=== PATIENT | male | born 1935 | race Two or more races ===

== ENCOUNTER 2020-02-04 21:41 | Inpatient (IN) | payer OTHER ==
[~2020-02-04] VITALS: Ht 182.9 cm; Wt 92.4 kg
[2020-02-04] MEDS ORDERED: LIDOCAINE 2%HCL (LOCAL ANESTH.) INJ 20ML MDV ONE (22:08)
[2020-02-04] MEDS ORDERED: IODIXANOL 320MG/ML 100ML BTL IV ONE ×2 (22:08→23:04)
[2020-02-04] MEDS ORDERED: NOREPINEPHRINE 8 MG/250ML KIT 250 ML IV ONE (22:08)
[2020-02-04] MEDS ORDERED: SODIUM CHL 0.9% 50 ML ONE (22:10)
[2020-02-04] MEDS ORDERED: diphenhdrAMINE HCL 50 MG/1 ML VL ONE (22:10)
[2020-02-04] MEDS ORDERED: ANGIOMAX 250 MG VIAL IV ONE (22:10)
[2020-02-04] MEDS ORDERED: MIDAZOLAM HCL 1MG/1ML-2 ML VIAL ONE (22:10)
[2020-02-04] MEDS ORDERED: fentaNYL CITRATE 100 MCG/2 ML VL ONE (22:10)
[2020-02-04] MEDS: NOREPINEPHRINE 8 MG/250ML KIT 250 ML IV SCH (22:15)
[2020-02-04 22:16] LABS: Hemoglobin 13.3 g/dL (13.5-17.5); Mean Corpuscular Hemoglobin 27.8 pg (28.0-32.0); Mean Corpuscular Volume 89.6 fL (80.0-100.0); Platelet Count (auto) 139 10^3/uL (140-450); Red Cell Distribution Width 17.1 % (11.8-14.3); White Blood Cell 13.1 10^3/uL (4.4-10.8)
[2020-02-04] MEDS ORDERED: DOPamine 1600MCG/ML D5W 0 ML IV ONE (22:17)
[2020-02-04] MEDS ORDERED: ATROPINE SULF 1 MG/10ml SYR ONE (22:17)
[2020-02-04] MEDS ORDERED: EPINEPHrine HCL 1 MG/10 ML SYRG ONE (22:17)
[2020-02-04 22:31] LABS: Urine Bacteria FEW /hpf (None Seen); Urine Blood 3+ /uL (Negative); Urine Specific Gravity 1.015 (1.001-1.035); Urine WBC 59 /hpf (0 - 3)
[2020-02-04 22:38] LABS: Calcium 8.5 mg/dL (8.5-10.1); Potassium 5.3 mmol/L (3.5-5.1)
[2020-02-04 22:39] LABS: Basophils % (manual) 0 (0.0-2.0); Blast Cells 0; Myelocytes % 0; Promyelocytes % 0
[2020-02-04 22:45] LABS: Albumin 3.2 g/dL (3.4-5.0); BUN/Creatinine Ratio 23.7; Bilirubin, Total 0.5 mg/dL (0.2-1.0); Total Protein 7.5 g/dL (6.4-8.2)
[2020-02-04 23:03] LABS: Band Neutrophils % (manual) 2; Eosinophils % (manual) 1 (0-7); Lymphocytes % (manual) 57 (10.0-50.0); Metamyelocytes % 1; Monocytes % (manual) 7 (0-12); Reactive Lymphocytes 2
[2020-02-04] MEDS ORDERED: CLOPIDOGREL 300 MG TAB ONE (23:57)
[2020-02-04] MEDS ORDERED: ASPirin 325 MG TAB ONE (23:57)
[2020-02-05] VITALS (103 sets, daily range): BP systolic 68–129; BP diastolic 31–73
[2020-02-05] MEDS ORDERED: CLOPIDOGREL 300 MG TAB ONE
--- NOTE | 2020-02-05 00:45 | NUR ---
HYPOTHERMIA STARTED, V/S STABLE. COOLING BLANKET UNDER AND ON TOP OF PT.
--- NOTE | 2020-02-05 00:52 | NUR ---
0012-REPORT GIVEN TO AMAURI GUERRERO IN FULL DETAIL. 0015-PT TRANSPORTED TO ICU RM 101 BY RT AND 2 RN'S IN STABLE CONDITION ON BUILDING WRECKER AND IS INTUBATED. CESAR BAUGH AT BEDSIDE. ARTERIAL SHEATH IN PLACE AND INTACT. NO BLEEDING FROM SITE, NO HEMATOMA. ANGIOMAX COMPLETED. NO INCIDENTS TO REPORT.
[2020-02-05] MEDS ORDERED: LIDOCAINE 1% (LOCAL ANESTH.) PF 5ml SDV ONE (08:02)
--- NOTE | 2020-02-05 08:30 | NUR ---
PATIENT TRANSITIONED TO ZOLL THERAPEUTIC HYPOTHERMIA SYSTEM FROM HYPOTHERMIA BLANKET METHOD.
--- NOTE | 2020-02-05 08:40 | NUR ---
2D CARDIAC ECHO IN PROGRESS AT BEDSIDE.
--- NOTE | 2020-02-05 08:55 | NUR ---
ABG RESULTS CALLED TO DR JUSTICE - ORDERS RECEIVED.
[2020-02-05] MEDS ORDERED: SODIUM CHLORIDE 0.9% 1,000 ML IV ONE (09:00)
[2020-02-05] MEDS ORDERED: VANCOMYCIN PER PHARMACY 0 MG IV SCH (09:00)
[2020-02-05] MEDS ORDERED: SODIUM BICARBONATE 8.4 % INJ 50ML VIAL IV ONE ×4 (09:00→16:15)
[2020-02-05] MEDS ORDERED: SODIUM CHLORIDE 0.9% 1,000 ML IV SCH ×2 (09:00→10:00)
--- NOTE | 2020-02-05 09:00 | NUR ---
NO SEDATION IN PLACE CURRENTLY Addendum: 02/05/20 at 2027 by Arabella Kinney RN Amended: Links added.
--- NOTE | 2020-02-05 09:25 | NUR ---
DR MANNING VISITS AND EXAMINES PATIENT - ORDERS RECEIVED.
[2020-02-05] MEDS ORDERED: VANCOMYCIN 1GM/250ML 250 ML IV ONE (09:30)
--- NOTE | 2020-02-05 09:30 | NUR ---
SPOKE TO DR MANNING RE: ABD DISTENTION AND FIRMNESS - NO ORDERS RECEIVED.
[2020-02-05 09:32] LABS: Basophils # (auto) 0 10 ^3/uL (0-0.2); Basophils % (auto) 0.2 % (0.0-2.0); Eosinophils # (auto) 0 10 ^3/uL (0-0.8); Eosinophils % (auto) 0.1 % (0.0-7.0); Hematocrit 43.9 % (41.0-53.0); Hemoglobin 13.9 g/dL (13.5-17.5); Lymphocytes # (auto) 0.8 10 ^3/uL (0.4-5.4); Lymphocytes % (auto) 18.6 % (10.0-50.0); Mean Corpuscular Hemoglobin 27.8 pg (28.0-32.0); Mean Corpuscular Hgb Conc. 31.7 g/dL (32.0-36.0); Mean Corpuscular Volume 87.9 fL (80.0-100.0); Monocytes # (auto) 0.3 10 ^3/uL (0-1.3); Monocytes % (auto) 8.1 % (0.0-12.0); Nucleated Red Blood Cells % 0.1 %; Platelet Count (auto) 226 10^3/uL (140-450); Red Cell Distribution Width 17.2 % (11.8-14.3); White Blood Cell 4.1 10^3/uL (4.4-10.8)
[2020-02-05] MEDS: NOREPINEPHRINE 8 MG/250ML KIT 250 ML IV SCH ×2 (09:45→18:45)
[2020-02-05 09:51] LABS: Albumin 2.7 g/dL (3.4-5.0); Calcium 7.9 mg/dL (8.5-10.1); Potassium 4.4 mmol/L (3.5-5.1)
[2020-02-05] MEDS: CARVEDILOL 3.125 MG TAB PO SCH ×2 (09:53→18:00)
[2020-02-05] MEDS: LISINOPRIL 5 MG TAB PO SCH (09:53)
[2020-02-05 09:54] LABS: BUN/Creatinine Ratio 19.7; Bilirubin, Total 0.6 mg/dL (0.2-1.0); Lactic Acid w/Reflex 8.2 mmol/L (0.4-2.0); Total Protein 6.5 g/dL (6.4-8.2)
[2020-02-05] MEDS ORDERED: ENOXAPARIN SOD 40 MG/0.4 ML SYRINGE SC SCH (10:00)
[2020-02-05] MEDS ORDERED: DEXTROSE (50%) 50ML SYRG IV PRN (10:00)
[2020-02-05] MEDS ORDERED: PANTOPRAZOLE 40 MG/10 ML VIAL INJ IV SCH (10:00)
[2020-02-05] MEDS: fentaNYL Drip 2500mCg/250mlNS 250 ML IV SCH (10:13)
[2020-02-05] MEDS: PROPOFOL 100 ML IV SCH (10:13)
--- NOTE | 2020-02-05 10:18 | NUR ---
MESSAGE LEFT ON DR JUSTICE'S VM RE: TROP LEVEL 3.17
[2020-02-05] MEDS ORDERED: MIDAZOLAM DRIP 50 mg/50mL 50 ML IV ONE (10:22)
[2020-02-05] MEDS ORDERED: fentaNYL Drip 2500mCg/250mlNS 250 ML IV ONE (10:22)
[2020-02-05] MEDS ORDERED: SODIUM CHLORIDE 0.9% 2,000 ML IV ONE (10:45)
[2020-02-05] MEDS: MIDAZOLAM DRIP 50 mg/50mL 50 ML IV SCH ×2 (10:45→21:48)
--- NOTE | 2020-02-05 10:56 | NUR ---
WOUND CARE NOTE: Wound care in to see patient per wound care request regarding low Lyndon score and intubation status putting patient to high risk for skin breakdown. Patient is 84 years old male with admitting diagnosis of STEMI. Patient with history of CAD S/P 3V CABG and DM. Patient is resting in ICU bed in Rm. 101. Patient is intubated, and mechanically ventilated. Unable to do full skin assessment per primary nurse, AMAURI Bell's request due to "BP is too low" "unstable to turn"; wound care will try to come back at later time for skin assessment. Addendum: 02/05/20 at 1403 by Kita Singer RN At 1243 Wound care attempted to see patient again for skin assessment. Patient's nurse at bedside, reported that patient is still unstable to turn. Wound care will try to see patient again at later time. RECOMMENDATION: Nursing to continue with BID/PRN cleaning and application of Barrier cream to sacral buttocks as preventative per MD order, frequent turning and repositioning schedule as condition permits, redistribute pressure points with pillows,elevate heels on pillow, continue monitoring by wound care while patient is mechanically ventilated.
--- NOTE | 2020-02-05 11:35 | NUR ---
DR SALAS VISITS AND EXAMINES PATIENT - ORDERS RECEIVED
[2020-02-05] MEDS: CLOPIDOGREL BISULFATE 75 MG TAB PO SCH (11:45)
[2020-02-05] MEDS: ASPirin 81 mg TAB PO SCH (11:45)
--- NOTE | 2020-02-05 11:49 | NUR ---
VIKAS IN PROGRESS AT BEDSIDE. FREIGHT COORDINATOR NOTED LARGE AMOUNT RECTAL BLEEDING - DR SALAS AT BEDSIDE - NOTIFIED. Signed: 02/05/20 at 1151 by Aarbella Kinney RN
[2020-02-05] MEDS: cefTRIAXone 1GM/50ML D5W 50 ML IV SCH (11:55)
[2020-02-05] MEDS: ACCU-CHEK COMFORT CURVE STRIP VI SCH ×2 (12:00→18:21)
[2020-02-05] MEDS: PHENYLEPHRINE IV 250 ML IV SCH ×5 (12:00→21:45)
--- NOTE | 2020-02-05 12:17 | NUR ---
DR ROSARIO NOTIFIED OF CONSULT AND PATIENT CONDITION - ORDERS RECEIVED.
--- NOTE | 2020-02-05 12:23 | NUR ---
DR ROSARIO AT BEDSIDE - -EXAMINES PATIENT - ORDERS RECEIVED. CALL PLACED TO DR JUSTICE RE: USE OF FFP DUE TO BLEEDING. DR SALAS AT BEDSIDE - AWARE OF SITUATION. Signed: 02/05/20 at 1227 by Arabella Kinney RN
--- NOTE | 2020-02-05 12:29 | NUR ---
NORA ASHTON NOTIFIED OF DR ROSARIO'S REQUEST TO GIVE FFP - ORDER RECEIVED TO TRANSFUSE.
[2020-02-05] MEDS: SODIUM CHLORIDE 0.9% 1,000 ML IV SCH ×3 (12:30→20:58)
[2020-02-05] MEDS ORDERED: EPINEPHrine HCL 1 MG/10 ML SYRG IV ONE (12:35)
[2020-02-05] MEDS ORDERED: SODIUM BICARBONATE 8.4% INJ 50ML SYRINGE IV ONE (12:35)
--- NOTE | 2020-02-05 12:44 | NUR ---
DR JUSTCIE RETURNS CALL - INFORMED OF GI BLEED AND NEED FOR FF TRANSFUSION - AGREEABLE Signed: 02/05/20 at 1244 by Arabella Kinney RN
--- NOTE | 2020-02-05 12:55 | NUR ---
NG tube irrigated with 30 ml water - no liq returned - cont'd on LCWS.
--- NOTE | 2020-02-05 13:00 | NUR ---
at bedside - condition noted, no new orders received.
[2020-02-05 13:10] LABS: Hematocrit 38.3 % (41.0-53.0); Hemoglobin 12.5 g/dL (13.5-17.5)
[2020-02-05] MEDS: PANTOPRAZOLE 40mg/50ML NS AE 50 ML IV SCH ×3 (13:23→23:00)
[2020-02-05] MEDS: InsuLIN REG 1unit/0.01ml Soln (100units/ml) SC SCH ×2 (13:23→18:18)
--- NOTE | 2020-02-05 13:50 | NUR ---
Wallace catheter with gross hematuria - repositioned and flushed with sterile NS - increased urine flow noted - will continue to monitor.
--- NOTE | 2020-02-05 14:10 | NUR ---
notified of B results - order received.
--- NOTE | 2020-02-05 14:36 | NUR ---
HOLD P.T. TODAY PER RN. PT IS NOT STABLE.
--- NOTE | 2020-02-05 14:37 | NUR ---
RT made insurance writer aware of abg results - called to per RT - awaiting return call for orders.
--- NOTE | 2020-02-05 14:38 | NUR ---
Patient's daughter phones - updated on patient condition - states has advance directive - will bring into hospital today.
--- NOTE | 2020-02-05 14:55 | NUR ---
Dr Raphael notified of [facility] results - order received, no vent changes, meds ordered. Addendum: 02/05/20 at 1614 by Arabella Kinney RN Dr Brown states to notify Dr. Ron - call placed to .
--- NOTE | 2020-02-05 15:30 | NUR ---
PATIENT'S DAUGHTER DELIVERS ADVANCE DIRECTIVE TO HOSPITAL.
--- NOTE | 2020-02-05 16:14 | NUR ---
Another call placed to Dr. Ron re: VIKAS results.
--- NOTE | 2020-02-05 16:30 | NUR ---
DR ROSARIO RETURNS CALL - INFORMED OF KUB RESULT - STATES TO PLACE RECTAL TUBE IF PATIENT NOT RECTALLY BLEEDING. PATIENT'S BP VERY LABILE, BRUCE GTT MAXXED - UNABLE TO PLACE RECTAL TUBE AT PRESENT.
--- NOTE | 2020-02-05 16:52 | NUR ---
FFP FIRST UNIT STARTED
--- NOTE | 2020-02-05 17:09 | NUR ---
DR MANNING NOTIFIED OF BRUCE GTT MAXXED, PATIENT'S DECLINING CONDITION RE: BP AND PATIENT'S ADVANCE DIRECTIVE -STATES TO CONTACT DR JUSTICE TO TALK WITH PATIENT'S FAMILY - CALL PLACED TO DR JUSTICE
--- NOTE | 2020-02-05 17:18 | NUR ---
DR JUSTICE RETURNS CALL - INFORMED OF DR MANNING'S REQUEST TO CALL PATIENT'S DAUGHTER TO DISCUSS POC AND CODE STATUS. Signed: 02/05/20 at 1720 by Arabella Kinney RN
--- NOTE | 2020-02-05 17:24 | NUR ---
SPOKE TO DR JUSTICE - STATES SPOKE TO PATIENT'S DAUGHTER LUIS - MODIFIED CODE STATUS RECEIVED - NO COMPRESSIONS.
--- NOTE | 2020-02-05 17:33 | NUR ---
DR JUSTICE PHONES - STATES SPOKE WITH PATIENT'S DAUGHTER - MODIFIED CODE STATUS OBTAINED - NO CPR
[2020-02-05] MEDS: EPINEPHrine HCL 250 ML IV SCH (17:41)
--- NOTE | 2020-02-05 19:30 | NUR ---
CARE ASSUMED. PT. SEDATED ON VERSED AND FENTANYL, NO RESPONSE TO NOXIOUS STIMULI. PUILS RIGHT - CLOUD OVER AND LEFT 2 SLUGGISH. NO GAG, NO COUGH. ETT 7.5, 24FR. VENTED AT TV 500, PEEP +10, RR 22 AC, 50% FIO2. SATS 95. LEFT UPPER LOBE ABSENT BREATH SOUNDS, COARSE AND DIMINISHED AT BASES. HR 90'S, IRREGULAR, PVC'S FREQUENTLY AND ST SEGMENT DEPRESSIONS. BLOOD PRESSURES VERY LABILE 70'S TO 100'S. PRESENTLY ON LEVO AT 30 MCG/MIN., BRUCE 180 MCG/MIN. EPI AT 2 MCG/MIN. ABDOMEN - LARGE, ROUND, DISTENDED AND FIRM. ABSENT BOWEL SOUNDS. RIGHT NARE NGT TO LIS, SMALL AMT. OF BROWN DRAINAGE PRESENT. NO BM AT THIS TIME. BERGERON WITH TONY NOTED, FLUSHED WITH 40CC NS, WILL CONTINUE TO MONITOR. COOLGUARD MACHINE IN PLACE, TEMP 34 C. WILL RESTART WARMING AT 0100 02/05. RIGHT LEFT GROIN INTACT. CENTRAL LINE TO RIGHT INTACT AND LEFT ART LINE NO ISSUES. ART LINE WAVE FORM ADEQUATE, GOOD BLOOD RETURN. IV SITE TO RT. AND LT. WRIST INTACT. RIGHT SC LINE INTACT. ALL DRIPS AND IVF INFUSING THRU IT.
--- NOTE | 2020-02-05 21:00 | NUR ---
CALL RECEIVED FROM FAMILY MEMBER WHO STATES IS OLDER DAUGHTER BUT HAS NO PASSWORD DUE TO FAMILY ISSUES. INFORMED THAT WE ARE UNABLE TO PROVIDE ANY INFORMATION TO ANYONE WITHOUT A PASSWORD. STATED SHE WILL LOOK FOR LEGAL HELP.
[2020-02-05] MEDS: ATORVASTATIN 20 MG TAB PO SCH (21:35)
--- NOTE | 2020-02-05 21:36 | NUR ---
CALL RECEIVED FROM LAB - TROPONIN 3.6, NOT REPORTED AT THIS TIME LEVELS EXPECTED TO BE ELEVATED D/T S/P M.I AND CPR
[2020-02-05] MEDS: VASOPRESSIN 50 UNITS in D5W 5% 247.5 ML IV SCH (21:46)
[2020-02-05] MEDS ORDERED: PHENYLEPHRINE HCL 10 MG/ML VL ONE (23:23)
[2020-02-05] MEDS ORDERED: PHENYLEPHRINE IV 500 ML IV ONE (23:23)
[2020-02-05] MEDS: PHENYLEPHRINE INJ 40 MG in SODIUM CHL 0.9% 250 ML IV SCH (23:30)
[2020-02-05] MEDS: NOREPINEPHRINE BITARTRATE 16 MG in D5W 5% 250 ML IV SCH (23:30)
--- NOTE | 2020-02-05 23:30 | NUR ---
DRIP CONCENTRATIONS: SPOKE TO [facility]LL ADJUNCT BUSINESS INSTRUCTOR REGARDING PATIENT AND THE NEED TO CONCENTRATE DRIPS. ORDER RECEIVED.
--- NOTE | 2020-02-05 23:30 | NUR ---
HAVE STARTED VASOPRESSIN AND PRESSURES IMPROVED, WILL CONTINUE TO MONITOR. URINE OUTPUT LOW AND BLOODY, NO CLOTS NOTED AT THIS TIME.
[2020-02-06] VITALS (105 sets, daily range): BP systolic 84–125; BP diastolic 21–65
[2020-02-06] MEDS: InsuLIN REG 1unit/0.01ml Soln (100units/ml) SC SCH ×5 (00:05→23:48)
--- NOTE | 2020-02-06 01:00 | NUR ---
REWARMING PHASE STARTED AT 0.5 CELSIUS/HR. WILL CONTINUE TO MONITOR.
[2020-02-06 01:40] LABS: Hematocrit 38.7 % (41.0-53.0); Hemoglobin 11.8 g/dL (13.5-17.5)
[2020-02-06] MEDS: EPINEPHrine HCL 250 ML IV SCH ×3 (02:09→15:25)
[2020-02-06] MEDS: PANTOPRAZOLE 40mg/50ML NS AE 50 ML IV SCH ×5 (03:15→22:23)
[2020-02-06 03:44] LABS: Basophils # (auto) 0 10 ^3/uL (0-0.2); Eosinophils # (auto) 0 10 ^3/uL (0-0.8); Hemoglobin 11.9 g/dL (13.5-17.5); Monocytes # (auto) 0.2 10 ^3/uL (0-1.3); Nucleated Red Blood Cells % 0.3 %
[2020-02-06 03:48] LABS: Basophils % (auto) 0.1 % (0.0-2.0); Eosinophils % (auto) 0.6 % (0.0-7.0); Hematocrit 38.2 % (41.0-53.0); Lymphocytes # (auto) 0.6 10 ^3/uL (0.4-5.4); Lymphocytes % (auto) 14.5 % (10.0-50.0); Mean Corpuscular Hgb Conc. 31.1 g/dL (32.0-36.0); Mean Corpuscular Volume 86.9 fL (80.0-100.0); Monocytes % (auto) 5.3 % (0.0-12.0); Neutrophils # (auto) 3.1 10 ^3/uL (1.6-8.6); Neutrophils % (auto) 79.5 % (37.0-80.0); Platelet Count (auto) 185 10^3/uL (140-450); White Blood Cell 3.9 10^3/uL (4.4-10.8)
[2020-02-06] MEDS ORDERED: PHENYLEPHRINE HCL 10 MG/ML VL ONE ×2 (03:52→04:29)
[2020-02-06 04:07] LABS: Albumin 2.2 g/dL (3.4-5.0); Calcium 6.7 mg/dL (8.5-10.1); Magnesium 2.5 mg/dL (1.6-2.6)
[2020-02-06 04:11] LABS: BUN/Creatinine Ratio 17.7; Bilirubin, Total 0.5 mg/dL (0.2-1.0); Total Protein 5.2 g/dL (6.4-8.2)
[2020-02-06] MEDS ORDERED: PANTOPRAZOLE 40mg/50ML NS AE 50 ML IV ONE (04:16)
[2020-02-06] MEDS ORDERED: PANTOPRAZOLE 40 MG/10 ML VIAL INJ IV ONE (04:17)
--- NOTE | 2020-02-06 05:45 | NUR ---
CALLED AND LEFT A MESSAGE TO FOR DR. SALAS REGARDING BLOOD GASES RESULTS.
[2020-02-06] MEDS: ACCU-CHEK COMFORT CURVE STRIP VI SCH ×5 (06:22→23:44)
[2020-02-06 06:51] LABS: Hematocrit 37.5 % (41.0-53.0); Hemoglobin 11.9 g/dL (13.5-17.5)
[2020-02-06] MEDS: SODIUM CHLORIDE 0.9% 1,000 ML IV SCH (06:58)
--- NOTE | 2020-02-06 07:18 | NUR ---
REPORT TO TANVIR BAUGH
[2020-02-06] MEDS ORDERED: NOREPINEPHRINE 8 MG/250ML KIT 250 ML IV ONE (07:30)
[2020-02-06] MEDS ORDERED: NOREPINEPHRINE BITARTRATE 2 ML IV ONE (07:30)
[2020-02-06] MEDS ORDERED: SODIUM BICARBONATE 8.4 % INJ 50ML VIAL IV ONE ×4 (08:00→22:45)
[2020-02-06] MEDS: CARVEDILOL 3.125 MG TAB PO SCH ×2 (08:00→17:51)
[2020-02-06] MEDS: NOREPINEPHRINE BITARTRATE 16 MG in D5W 5% 250 ML IV SCH ×3 (08:45→17:45)
--- NOTE | 2020-02-06 09:00 | NUR ---
SEDATION VACATION; Patient currently in re-warming phase of therapeutic hypothermia protocol, is also tachypneic with RR 30's. No plan for sedation vacation at this time, will begin decreasing sedation once patient achieves goal temperature. Addendum: 02/06/20 at 0959 by Gil Cervantes RN Amended: Links added.
--- NOTE | 2020-02-06 09:10 | NUR ---
PROVIDER AT BEDSIDE; Amber Rincon BALANCE SCREWHEAD POLISHER at bedside for cardiology rounds.
[2020-02-06] MEDS ORDERED: POTASSIUM CHL 20MEQ/100ML 100 ML IV SCH (09:15)
[2020-02-06] MEDS: ASPirin 81 mg TAB PO SCH (09:36)
[2020-02-06] MEDS: CLOPIDOGREL BISULFATE 75 MG TAB PO SCH (09:37)
[2020-02-06] MEDS: LISINOPRIL 5 MG TAB PO SCH (09:37)
--- NOTE | 2020-02-06 09:49 | NUR ---
PT UNSTABLE FOR TRANSPORT TO CT AT THIS TIME PER TANVIR BAUGH
[2020-02-06] MEDS ORDERED: VANCOMYCIN 1GM/250ML 250 ML IV ONE (10:00)
[2020-02-06] MEDS ORDERED: ENOXAPARIN SOD 30 MG/0.3 ML SYRINGE SC SCH (10:00)
[2020-02-06] MEDS: PHENYLEPHRINE INJ 40 MG in SODIUM CHL 0.9% 250 ML IV SCH ×4 (10:02→20:00)
[2020-02-06] MEDS: cefTRIAXone 1GM/50ML D5W 50 ML IV SCH (10:05)
[2020-02-06] MEDS: PROPOFOL 100 ML IV SCH (10:13)
[2020-02-06] MEDS: fentaNYL Drip 2500mCg/250mlNS 250 ML IV SCH (10:15)
--- NOTE | 2020-02-06 10:15 | NUR ---
FAMILY PHONE CALL: Call received from patient's daughter Ira, password provided. Update given to Ira including plan to begin to titrate off sedation to assess neurological function. Informed her that patient continues to require high dosages of multiple vasopressors for support at this time. Daughter with no further questions or concerns at this time, states she will call later in the day for an update.
--- NOTE | 2020-02-06 10:35 | NUR ---
PHYSICAL THERAPY; PT at bedside, informed them that patient not a candidate for PT at this time due to hemodynamic instability.
--- NOTE | 2020-02-06 10:47 | NUR ---
Hold PT today per RN, pt is not stable. Will attempt again tomorrow.
--- NOTE | 2020-02-06 11:20 | NUR ---
AT BEDSIDE: Dr. Sanz at bedside, orders received.
[2020-02-06 11:54] LABS: Hematocrit 36.3 % (41.0-53.0); Hemoglobin 12.1 g/dL (13.5-17.5)
[2020-02-06] MEDS: LINEZOLID 600MG/300ML 300 ML IV SCH ×2 (12:02→23:44)
[2020-02-06 12:20] LABS: BUN/Creatinine Ratio 16.4; Calcium 6.7 mg/dL (8.5-10.1); Magnesium 2.2 mg/dL (1.6-2.6); Potassium 3.2 mmol/L (3.5-5.1)
[2020-02-06] MEDS: VASOPRESSIN 50 UNITS in D5W 5% 247.5 ML IV SCH ×2 (12:45→20:00)
[2020-02-06] MEDS: POTASSIUM CHL 20MEQ/100ML 100 ML IV SCH ×2 (14:21→16:25)
[2020-02-06] MEDS: MEROPENEM 500MG IVPB 50 ML IV SCH (14:22)
--- NOTE | 2020-02-06 15:24 | NUR ---
assessment Patient is a 84 year old male who is on a vent in ICU. Per patients daughter Ira who is POA prior to admission patient lived home with a friend and functioned independently. Per Ira patient has a cane and fww for home use. Per Ira patient could do for himself except for driving. Patients PCP is Dr Lopez at the [facility]. Per Ira patient was admitted for chest pain and had CPR and put on a vent. I informed Ira that patients post discharge needs to be determined after extubation and prior to discharge. Ira verbalized understanding. Addendum: 02/06/20 at 1536 by Shalini BRITTON Amended: Links added.
--- NOTE | 2020-02-06 16:52 | NUR ---
HYPOTENSION: Patient suddenly developed hypotension, SBP decreased to 70's via femoral A-line reading; correlated with NIBP cuff reading of 75/34. Patient placed in supine position with HOB flat, increased Ej and Vasopressin as documented in IV spreadsheet. After increase titration of vasopressors patient had recovery of A-line blood pressure to 99/33.
[2020-02-06] MEDS: EPINEPHrine HCL INJECTION 8 MG in D5W 5% 250 ML IV SCH ×2 (17:10→22:00)
[2020-02-06] MEDS ORDERED: NOREPINEPHRINE BITARTRATE IV SCH (17:15)
[2020-02-06] MEDS ORDERED: D5W 5% IV SCH (17:15)
--- NOTE | 2020-02-06 17:23 | NUR ---
NEPHROLOGY CONSULT: Nephro consult called in, await return call.
[2020-02-06] MEDS ORDERED: BUMETANIDE 2.5mg/10ml (0.25 mg/ml) INJ IV ONE (17:30)
[2020-02-06] MEDS ORDERED: ALBUMIN 25% 100 ML IV ONE (17:30)
[2020-02-06] MEDS ORDERED: SODIUM BICARBONATE 50ML VIAL 50 ML in SOD CHL 0.45% 1,000 ML IV SCH (17:30)
--- NOTE | 2020-02-06 17:32 | NUR ---
RETURNED CALL RE: NEW CONSULTATION: Dr. Bhandari returned call for consultation. New orders received.
[2020-02-06 18:32] LABS: Protein, Urine 514.1 mg/dL (0.0-11.9)
--- NOTE | 2020-02-06 19:15 | NUR ---
OPENING NOTE RECEIVED REPORT FROM DAY SHIFT RN AND ASSUMED CARE OF PATIENT. PT IS INTUBATED WITH SIZE 7.5/24 AT THE LIP WITH MECHANICAL VENTILATOR IN PLACE (SETTINGS NOTED IN CHART). SEDATION IS RUNNING- FENTANYL AT 75 MCG. PT IS UNRESPONSIVE WITH NO COUGH/GAG WHEN SUCTIONED. LEFT PUPIL IS SIZE 4 MM AND FIXED. 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 NO INTENTIONAL MOVEMENT NOTED. NO ELEVATED TEMPERATURE. PT IS RUNNING SINUS RHYTHM WITH PAC/PVC WITH A RATE IN THE HIGH 90'S AND LOW 100'S. VASOPRESSOR THERAPY CONTINUED WITH LEVO (DOUBLE CONCENTRATED) 30 MCG, BRUCE 180 MCG (DOUBLE CONCENTRATED) , VASOPRESSIN 0.05 UNITS, AND EPI (DOUBLE CONCENTRATED) AT 10 MCG TO RIGHT SUBCLAVIAN TLC ACCESS. BP REMAINS IN LOW 90'S SYSTOLIC. RADIAL PULSES ARE PALPABLE AND WEAK, PEDAL PULSES WEAK VIA DOPPLER AND UNABLE TO ASSESS VIA PALPATION. EDEMA IS NOTED ON BILATERAL UPPER EXTREMITIES. LUNG SOUNDS ARE CLEAR THROUGHOUT. NO SECRETIONS FROM ORAL SUCTION OR ET TUBE SUCTION AT THIS TIME. ABDOMEN IS FIRM AND ROUND TO TOUCH. NG TUBE TO THE RIGHT NARE IS CONNECTED TO LIS WITH GREEN GASTRIC CONTENT NOTED. PROTONIX GTT RUNNING AT 8 ML/HR TO LEFT WRIST. BERGERON CATHETER INTACT AND DRAINING TO GRAVITY. URINE IS DARK TREVIN/RED WITH SCANT AMOUNT DRAINING. YELLOW/CLEAR DISCHARGE FROM TIP OF PENIS NOTED WITH BILATERAL SWOLLEN TESTICLES. IV ACCESS SITES INCLUDE 20 GAUGE PERIPHERAL IVS TO BILATERAL WRISTS. RIGHT FEMORAL A LINE- FLUSHED, ZEROED AND INTACT. LEFT GROIN TLC PATENT AND INTACT. FALL PRECAUTIONS INITIATED WITH BED IN LOWEST POSITION, SIDE RAILS UP, AND FALL BAND APPLIED TO PATIENT. WILL CONTINUE TO MONITOR AND ASSESS PATIENT CONDITION.
--- NOTE | 2020-02-06 21:26 | NUR ---
SEDATION VACATION NON ADMIN DUE TO PT CONDITION- UNABLE TO BE WEANED AT THIS TIME. Addendum: 02/06/20 at 7 by GLO DINERO RN RN Amended: Links added.
[2020-02-06] MEDS: ATORVASTATIN 20 MG TAB PO SCH (22:00)
--- NOTE | 2020-02-06 22:10 | NUR ---
MD MEDRANO AT BEDSIDE. MADE MD AWARE OF PTS DECREASING BP <85 SYSTOLIC CONSISTENTLY OVER THE LAST HALF HOUR DESPITE BEING MAXED OUT ON ALL VASOPRESSOR THERAPY. NEW ORDERS RECEIVED, NOTED IN CHART.
[2020-02-06] MEDS ORDERED: ALBUMIN 5% 250 ML IV ONE ×2 (22:14→22:15)
--- NOTE | 2020-02-06 22:25 | NUR ---
MD CALL CALLED MITCHELL AND MADE HIM AWARE OF PTS LATEST ABG. NEW ORDERS RECEIVED, NOTED IN CHART: PUSH 1 AMP SODIUM BICARB. INCREASE BICARB GTT TO 3 AMPS AT A RATE OF 150 ML/HOUR. WILL FOLLOW UP WITH MD NEEDED.
[2020-02-06] MEDS ORDERED: SODIUM BICARBONATE 50ML VIAL 50 ML, SODIUM BICARBONATE 50ML VIAL 50 ML, SODIUM BICARBON... IV SCH ×2 (22:45)
--- NOTE | 2020-02-06 22:45 | NUR ---
SPOKE WITH DAUGHTER/POA DYLAN MADE FAMILY AWARE OF DETERIORATING CONDITION. INVITED HER TO COME AND VISIT DUE TO POOR PROGNOSIS. VERBALIZED UNDERSTANDING OF PT CONDITION AND MEDICAL INTERVENTIONS.
[2020-02-07] VITALS (44 sets, daily range): BP systolic 24–131; BP diastolic 11–57
--- NOTE | 2020-02-07 00:15 | NUR ---
HOSPITALIST PAGE PAGED MITCHELL TO MAKE AWARE OF CRITICAL ABG RESULTS. AWAITING CALL BACK.
--- NOTE | 2020-02-07 00:28 | NUR ---
MD CALL BACK RECEIVED CALL BACK FROM MITCHELL. RECEIVED NEW ORDERS TO INCREASE BICARBONATE GTT TO 200 ML/HOUR AND GIVE ANOTHER AMP OF SODIUM BICARB IV PUSH.
[2020-02-07] MEDS ORDERED: SODIUM BICARBONATE 8.4 % INJ 50ML VIAL IV ONE ×2 (00:29→00:30)
[2020-02-07] MEDS: SODIUM BICARBONATE 50ML VIAL 150 ML in SOD CHL 0.45% 1,000 ML IV SCH ×3 (00:49→08:58)
[2020-02-07] MEDS: NOREPINEPHRINE BITARTRATE 16 MG in D5W 5% 250 ML IV SCH (01:00)
[2020-02-07] MEDS: MEROPENEM 500MG IVPB 50 ML IV SCH (01:54)
--- NOTE | 2020-02-07 02:48 | NUR ---
CENTRAL LINE DRESSING CHANGES Central line dressing change done with a sterile technique to left groin, right groin, and right subclavian TLC. Cleansed with alcohol scrub/betadine. Bio-patch applied. Occlusive dressing applied with time, date, and RN initials.
--- NOTE | 2020-02-07 02:52 | NUR ---
CHG BATH BATHED PT WITH CHG WIPES. ASSESSED SKIN INTEGRITY-NO NEW CHANGES. FULL KATI CHANGE DONE.
--- NOTE | 2020-02-07 02:58 | NUR ---
CODE BLUE CALLED Please see CODE sheets and Provider/MD notes regarding patient code. Family notified of code blue and updated on patient status post code. Pt went into A flutter, then wide QRS complex and went bradycardic. Code blue initiated by Rebecca White RN. Marychuy Cole RN at bedside.
--- NOTE | 2020-02-07 03:00 | NUR ---
FAMILY NOTIFIED OF STATUS CHANGE SPOKE WITH LUIS, FAMILY WILL COME TO BEDSIDE.
[2020-02-07 03:25] LABS: Hematocrit 29.5 % (41.0-53.0); Hemoglobin 9.1 g/dL (13.5-17.5); Mean Corpuscular Hemoglobin 27.3 pg (28.0-32.0); Platelet Count (auto) 115 10^3/uL (140-450); Red Blood Cells 3.35 10^6/uL (4.5-5.90); Red Cell Distribution Width 17.5 % (11.8-14.3); White Blood Cell 12.3 10^3/uL (4.4-10.8)
[2020-02-07 03:33] LABS: Albumin 1.7 g/dL (3.4-5.0); BUN/Creatinine Ratio 15.9; Calcium 8.6 mg/dL (8.5-10.1)
[2020-02-07 03:40] LABS: Basophils % (manual) 0 (0.0-2.0); Blast Cells 0; Eosinophils % (manual) 0 (0-7); Myelocytes % 0; Promyelocytes % 0; Reactive Lymphocytes 0
--- NOTE | 2020-02-07 03:40 | NUR ---
FAMILY AT BEDSIDE/ CODE STATUS CHANGE POA DAUGHTER LUIS AT BEDSIDE. MADE AWARE OF PREVIOUS CODE BLUE AND CHANGE IN PT CONDITION. LUIS VERBALIZED UNDERSTANDING OF PT CONDITION AND POOR PROGNOSIS. SHE AGREED TO MAKE PT FULL DNR WITH COMFORT MEASURES ONLY AFTER ALL OPTIONS/ RISKS AND BENEFITS WERE EXPLAINED. Addendum: 02/07/20 at 0423 by GLO DINERO RN RN CORRECTION: DAUGHTER MADE PT FULL DNR WITH CONTINUED VASOPRESSOR THERAPY AND VENTILATOR SUPPORT, NOT COMFORT MEASURES ONLY.
[2020-02-07 03:42] LABS: Total Protein 3.8 g/dL (6.4-8.2)
[2020-02-07] MEDS: PANTOPRAZOLE 40mg/50ML NS AE 50 ML IV SCH ×2 (04:27→08:59)
[2020-02-07] MEDS: VASOPRESSIN 50 UNITS in D5W 5% 247.5 ML IV SCH (05:30)
[2020-02-07] MEDS: PHENYLEPHRINE INJ 40 MG in SODIUM CHL 0.9% 250 ML IV SCH (05:35)
[2020-02-07] MEDS: ACCU-CHEK COMFORT CURVE STRIP VI SCH (05:55)
[2020-02-07] MEDS: InsuLIN REG 1unit/0.01ml Soln (100units/ml) SC SCH (06:00)
--- NOTE | 2020-02-07 06:00 | NUR ---
BLOOD GLUCOSE DID ACCUCHECK AND GOT A RESULT OF 47. RECHECKED SUGAR WITH A RESULT OF 57. GAVE ONE AMP DEXTROSE PER ORDER. WILL REASSESS.
--- NOTE | 2020-02-07 06:15 | NUR ---
BLOOD SUGAR REASSESSMENT BLOOD GLUCOSE RESULT IS 116 AFTER ADMINISTERING 1 AMP DEXTROSE PER ORDER.
[2020-02-07 06:54] LABS: Band Neutrophils % (manual) 36; Lymphocytes % (manual) 38 (10.0-50.0); Metamyelocytes % 1; Monocytes % (manual) 11 (0-12)
--- NOTE | 2020-02-07 07:24 | NUR ---
REPORT RECEIVED PT MAXED OUT ON VASOPRESSORS, ALL DRIPS ARE RUNNING, RESUMING PT CARE. PT HEMODYNAMICALLY UNSTABLE.
[2020-02-07] MEDS: CARVEDILOL 3.125 MG TAB PO SCH (08:00)
--- NOTE | 2020-02-07 08:49 | NUR ---
EKG CHANGES, QRS WIDENING, HAVING PERIODS OF PAUSES, MAXED OUT ON ALL PRESSORS. PER FAMILY WISHES DO NOT RESUSCITATE.
--- NOTE | 2020-02-07 09:14 | NUR ---
ASYSTOLE PT ASYSTOLE ON LASER PRINT OPERATOR, NO PULSES, PUPILS UNREACTIVE TO LIGHT.
--- NOTE | 2020-02-07 09:23 | NUR ---
FAMILY NOTIFIED LUIS NOTIFIED OF PT'S . ALL QUESTIONS AND CONCERNS ADDRESSED. PER LUIS SHE WILL BE INTO HOSPITAL IN ONE HOUR.
--- NOTE | 2020-02-07 09:26 | NUR ---
DR. NIGEL FELICIANO REGARDING PT PASSING. Addendum: 02/07/20 at 1046 by KONRAD ZUNIGA RN RN DR. MANNING NOT ON SITE TODAY!
--- NOTE | 2020-02-07 09:37 | NUR ---
[facility] NOTIFIED OF PT . PER RAVI THEY WILL NOT PRECEDE WITH ORGAN DONATION.
--- NOTE | 2020-02-07 10:29 | NUR ---
[facility] WILL NOTIFY WHEN TO PLYCOR OPERATOR PT.
--- NOTE | 2020-02-07 10:36 | NUR ---
FAMILY NOTIFIED DEQUAN DAUGHTER NOTIFIED OF PT PASSING PER LUIS'S REQUEST.
--- NOTE | 2020-02-07 10:44 | NUR ---
PAGED DR ORR REGARDING PT PASSING. AWAITING FOR CALL BACK.
--- NOTE | 2020-02-07 10:55 | NUR ---
DR. ORR AT BEDSIDE TO PRONOUNCE PT.
--- NOTE | 2020-02-07 11:02 | NUR ---
PT'S BELONGING SENT WITH LUIS
--- NOTE | 2020-02-07 11:12 | NUR ---
BOX MAKER PAGED, AWAITING A CALL BACK.
--- NOTE | 2020-02-07 12:20 | NUR ---
AUTOMATION QTP TESTER AUTOMATION QTP TESTER ([place]) RELEASED PT,
--- NOTE | 2020-02-07 12:47 | NUR ---
POST CARE PERFORMED
--- NOTE | 2020-02-07 13:02 | NUR ---
RADHA CHRIS [facility] NOTIFIED - READY FOR HEATING WORKER RADHA PHONE: [phone]
[2020-02-07] MEDS ORDERED: SODIUM BICARBONATE 8.4% INJ 50ML SYRINGE IV ONE (13:47)
[2020-02-07] MEDS ORDERED: ATROPINE SULF 1 MG/10ml SYR IV ONE (13:47)
[2020-02-07] MEDS ORDERED: EPINEPHrine HCL 1 MG/1 ML AMP IM ONE (13:47)
[2020-02-07] MEDS ORDERED: CALCIUM CHLOR(10%) 100MG/ML 10ML SYRINGE IV ONE (13:47)
--- NOTE | 2020-02-07 13:55 | NUR ---
BODY PICKED UP BY RADHA DARBY
--- NOTE | 2020-03-05 16:40 | NUR ---
LATE ENTRY ORDERS PLACED ON 02/05/20 UNDER INCORRECT LOG-IN WERE DISCOVERED ON 03/05/20. CORRECT LOG-IN SHOULD HAVE BEEN FARRUKH BAUGH FOR THE FOLLOWING ORDERS: [id number], [phone], [phone], [phone], [phone], [phone], [phone], [phone], [phone], [id number], [phone]. ALL ORDERS SHOULD HAVE BEEN PLACED UNDER DR. VEGA INSTEAD OF DR. NESS.
== END 2020-02-07 15:07 | disposition expired | DRG 246 ==
LOC: EDAGE 21:41 → EDBD 21:41 → ER 21:41 → CATH 22:11 → ICU WEST 22:12
PROVIDERS: ADMIT Internal Medicine; ATTEND Internal Medicine Nephrology
PROC: 4A023N7 Measurement of Cardiac Sampling and Pressure, Left Heart, Percutaneous Approach (ICD-10-PCS; principal; 2020-02-04)
PROC: 027035Z Dilation of Coronary Artery, One Artery with Two Drug-eluting Intraluminal Devices, Percutaneous Approach (ICD-10-PCS; 2020-02-04)
PROC: B2111ZZ Fluoroscopy of Multiple Coronary Arteries using Low Osmolar Contrast (ICD-10-PCS; 2020-02-04)
PROC: B2151ZZ Fluoroscopy of Left Heart using Low Osmolar Contrast (ICD-10-PCS; 2020-02-04)
PROC: 5A1945Z Respiratory Ventilation, 24-96 Consecutive Hours (ICD-10-PCS; 2020-02-04)
PROC: B2131ZZ Fluoroscopy of Multiple Coronary Artery Bypass Grafts using Low Osmolar Contrast (ICD-10-PCS; 2020-02-04)
PROC: 5A12012 Performance of Cardiac Output, Single, Manual (ICD-10-PCS; 2020-02-04)
PROC: 0BH17EZ Insertion of Endotracheal Airway into Trachea, Via Natural or Artificial Opening (ICD-10-PCS; 2020-02-04)
PROC: B2181ZZ Fluoroscopy of Left Internal Mammary Bypass Graft using Low Osmolar Contrast (ICD-10-PCS; 2020-02-04)
PROC: 02HV33Z Insertion of Infusion Device into Superior Vena Cava, Percutaneous Approach (ICD-10-PCS; 2020-02-05)
PROC: 5A12012 Performance of Cardiac Output, Single, Manual (ICD-10-PCS; 2020-02-07)
DX: I21.19 ST elevation (STEMI) myocardial infarction involving other coronary artery of inferior wall (principal); J96.01 Acute respiratory failure with hypoxia; J69.0 Pneumonitis due to inhalation of food and vomit; N17.0 Acute kidney failure with tubular necrosis; A41.9 Sepsis, unspecified organism; I25.810 Atherosclerosis of coronary artery bypass graft(s) without angina pectoris; E44.0 Moderate protein-calorie malnutrition; E87.2 Acidosis; K92.2 Gastrointestinal hemorrhage, unspecified; E78.5 Hyperlipidemia, unspecified; N18.3 Chronic kidney disease, stage 3 (moderate); Z68.27 Body mass index [BMI] 27.0-27.9, adult; E11.22 Type 2 diabetes mellitus with diabetic chronic kidney disease; I12.9 Hypertensive chronic kidney disease with stage 1 through stage 4 chronic kidney disease, or unspecified chronic kidney disease; Z79.4 Long term (current) use of insulin; I46.9 Cardiac arrest, cause unspecified
CPT/HCPCS: 36415; 36600; 71045; 74018; 80048; 80053; 80061; 80202; 81001; 82570; 82805; 82962; 83036; 83605; 83735; 84132; 84156; 84300; 84443; 84484; 85007; 85014; 85018; 85025; 85027; 86850; 86900; 86901; 86920; 87040; 87070; 87077; 87081; 87186; 87205; 92928; 92929; 92950; 93005; 93306; 93459; 94002; 94003; 99152; 99153; C1874; C9113; G0378; J0171; J0696; J1815; J2185; J2250; J3480; J7060; P9047; Q9967